=== PATIENT | female | born 1930 | race Caucasian/White ===

== ENCOUNTER 2017-11-17 08:43 | Emergency (ER) | payer MEDICARE, OTHER ==
[~2017-11-17] VITALS: Ht 167.6 cm; Wt 59.0 kg
[~2017-11-17 08:43] MED LIST: ASPIR-LOW81 MG PO; COENZYME Q-10200 MG PO; COUMADIN4 MG PO; COUMADIN7.5 MG PO; DIALYVITE 800-1 EAC1 PO; FISH OIL 1,0001 EAC6 PO; MULTI VITAMIN1 EACH PO; OCUVITE ADULT1 EAC1 PO; VITAMIN E200 UNI2 PO
[2017-11-17] MEDS ORDERED: AMIODARONE HCL200 MG PO (08:57)
[2017-11-17] MEDS ORDERED: LISINOPRIL10 MG PO (14:25)
--- NOTE | 2017-11-17 18:32 | EKG ---
[facility] [address] [facility] [place] [address] Signed Sinus bradycardia Left axis deviation Left bundle branch block Abnormal ECG No previous ECGs available Confirmed by MAKEDA MEMBRENO MD ([id number]) on 11/17/2017 6:32:17 PM Electronically Signed By: MAKEDA MEMBRENO MD 11/17/17 [id number] PATIENT NAME: VARGAS BHATTI Electrocardiogram DATE OF : 32 PHYSICIAN: MAKEDA MEMBRENO MD REPORT #: [id number] REPORT IS CONFIDENTIAL AND NOT TO BE RELEASED WITHOUT AUTHORIZATION
== END 2017-11-17 15:30 | disposition short-term general hospital (02) ==
LOC: ED 08:43
PROC: 0T9B70Z Drainage of Bladder with Drainage Device, Via Natural or Artificial Opening (ICD-10-PCS; principal; 2017-11-17)
DX: S72.091A Other fracture of head and neck of right femur, initial encounter for closed fracture (principal); W18.30XA Fall on same level, unspecified, initial encounter; Z79.899 Other long term (current) drug therapy; Z79.01 Long term (current) use of anticoagulants; Z79.82 Long term (current) use of aspirin
CPT/HCPCS: 51701; 70450; 71045; 73502; 80053; 81001; 85025; 85610; 86850; 86900; 86901; 93005; 93010; 96374; 96376; 99285; J1170

== ENCOUNTER 2018-11-18 21:07 | Emergency (ER) | payer MEDICARE, OTHER ==
[~2018-11-18] VITALS: Ht 167.6 cm; Wt 59.0 kg
[~2018-11-18 21:07] MED LIST changes: +AMIODARONE HCL200 MG PO; +LISINOPRIL10 MG PO; +PENICILLIN V P250 MG PO
== END 2018-11-19 00:05 | disposition home or self-care (01) ==
LOC: ED 21:07
PROC: 0T9B70Z Drainage of Bladder with Drainage Device, Via Natural or Artificial Opening (ICD-10-PCS; principal; 2018-11-18)
DX: S12.112A Nondisplaced Type II dens fracture, initial encounter for closed fracture (principal); I48.91 Unspecified atrial fibrillation; F03.90 Unspecified dementia, unspecified severity, without behavioral disturbance, psychotic disturbance, mood disturbance, and anxiety; Z79.899 Other long term (current) drug therapy; Z79.01 Long term (current) use of anticoagulants; W01.10XA Fall on same level from slipping, tripping and stumbling with subsequent striking against unspecified object, initial encounter
CPT/HCPCS: 51702; 70450; 72125; 73130; 99284-25

== ENCOUNTER 2019-04-23 08:12 | Emergency (ER) | payer MEDICARE, OTHER ==
[~2019-04-23] VITALS: Ht 167.6 cm; Wt 59.0 kg
== END 2019-04-23 09:40 | disposition home or self-care (01) ==
LOC: ED 08:12
DX: K62.5 Hemorrhage of anus and rectum (principal); I48.91 Unspecified atrial fibrillation; Z79.01 Long term (current) use of anticoagulants; Z79.899 Other long term (current) drug therapy
CPT/HCPCS: 80053; 85025; 85610; 99283

== ENCOUNTER 2019-11-12 19:44 | Inpatient (IN) | payer MEDICARE ==
[~2019-11-12] VITALS: Ht 167.6 cm; Wt 52.2 kg
[2019-11-12] MEDS ORDERED: ASPIR 8181 MG PO (21:43)
--- NOTE | 2019-11-12 22:06 | EKG ---
[facility] [address] [facility] [place] [address] Signed Sinus bradycardia Left axis deviation Left bundle branch block Abnormal ECG When compared with ECG of 17-NOV-2017 09:03, No significant change was found Confirmed by ALEC WITT MD ([id number] on 11/12/2019 10:06:43 PM Electronically Signed By: ALEC WITT MD 11/12/19 [id number] PATIENT NAME: VARGAS BHATTI J Electrocardiogram DATE OF : 32 PHYSICIAN: ALEC WITT MD REPORT #: [id number] REPORT IS CONFIDENTIAL AND NOT TO BE RELEASED WITHOUT AUTHORIZATION
[2019-11-13] MEDS ORDERED: ICAPS MV TABLE1 EACH PO (11:12)
[2019-11-13] MEDS ORDERED: B COMPLEX1 EACH PO (11:14)
[2019-11-21] MEDS ORDERED: MORPHINE SU4 MG/1 M1 SUB-Q (10:30)
[2019-11-21] MEDS ORDERED: FENTANYL1 EACH TD (10:32)
[2019-11-21] MEDS ORDERED: FENTANYL1 EAC3 TD (10:32)
[2019-11-21] MEDS ORDERED: HALOPERIDOL2 MG/1 ML PO (10:32)
[2019-11-21] MEDS ORDERED: MORPHINE SUB-Q (11:51)
== END 2019-11-21 13:30 | disposition hospice, home (50) | DRG 542 ==
LOC: ED 19:44 → MS 19:45
PROVIDERS: ADMIT Internal Medicine
DX: M80.051A Age-related osteoporosis with current pathological fracture, right femur, initial encounter for fracture (principal); G93.41 Metabolic encephalopathy; I48.20 Chronic atrial fibrillation, unspecified; I10 Essential (primary) hypertension; G30.9 Alzheimer's disease, unspecified; F02.80 Dementia in other diseases classified elsewhere, unspecified severity, without behavioral disturbance, psychotic disturbance, mood disturbance, and anxiety; W18.30XA Fall on same level, unspecified, initial encounter; Y92.009 Unspecified place in unspecified non-institutional (private) residence as the place of occurrence of the external cause; Z79.01 Long term (current) use of anticoagulants; Z91.81 History of falling; Z66 Do not resuscitate; Z51.5 Encounter for palliative care; Z79.899 Other long term (current) drug therapy; Z79.82 Long term (current) use of aspirin
CPT/HCPCS: 36415; 73502; 73552; 73560; 73700; 80048; 80053; 83735; 85025; 85610; 93005; 93010; 94760; 96374; 96375; 96376; 97163; 99285-25; J2060; J2270; J2405; J3010; J3480; J7121